=== PATIENT | male | born 1985 | race Two or more races ===

== ENCOUNTER 2017-07-26 00:56 | Emergency (ER) | payer OTHER ==
[2017-07-26] MEDS ORDERED: LIDOCAINE 1% HCL (LOCAL ANESTH.) INJ 20ML MDV ONE (03:52)
[2017-07-26] MEDS ORDERED: LIDOCAINE 2%HCL (LOCAL ANESTH.) INJ 20ML MDV ONE (03:54)
[2017-07-26 06:15] VITALS: BP 131/79
== END 2017-07-26 06:01 | disposition home or self-care (01) ==
LOC: ER 00:56 → EDSEX 00:56 → EDBD 00:56 → ER 06:01
DX: S83.92XA Sprain of unspecified site of left knee, initial encounter (principal); M25.462 Effusion, left knee; X58.XXXA Exposure to other specified factors, initial encounter; Y93.89 Activity, other specified; Y99.8 Other external cause status; Y92.89 Other specified places as the place of occurrence of the external cause
CPT/HCPCS: 20610; 73560; 99284; J2001

== ENCOUNTER 2017-07-26 08:33 | Emergency (ER) | payer OTHER ==
[~2017-07-26] VITALS: Ht 182.9 cm; Wt 79.4 kg
[2017-07-26] MEDS ORDERED: SODIUM CHLORIDE 0.9% 1,000 ML IV ONE (08:57)
[2017-07-26] MEDS ORDERED: LORazepam 2MG/ML-1ML VIAL IV ONE (09:00)
[2017-07-26] MEDS ORDERED: THIAMINE HCL 100 MG/ML 2ML VIAL IV ONE (09:00)
[2017-07-26 10:31] LABS: Basophils # (auto) 0 uL; Basophils % (auto) 0.1 % (0.0-2.0); Eosinophils # (auto) 0 uL; Hematocrit 47.5 % (41.0-53.0); Hemoglobin 15.9 g/dL (13.5-17.5); Lymphocytes # (auto) 1.2 uL; Lymphocytes % (auto) 7.8 % (10.0-50.0); Mean Corpuscular Hgb Conc. 33.5 g/dL (32.0-36.0); Mean Corpuscular Volume 92.4 fL (80.0-100.0); Mean Platelet Volume 8.6 fL (6.9-10.8); Monocytes % (auto) 6.7 % (0.0-12.0); Neutrophils # (auto) 13.2 uL; Neutrophils % (auto) 85.4 % (37.0-80.0); Platelet Count (auto) 262 10^3/uL (140-450); Red Cell Distribution Width 13.2 % (11.8-14.3); White Blood Cell 15.5 10^3/uL (4.4-10.8)
[2017-07-26 10:58] LABS: Albumin 4.4 g/dL (3.4-5.0); BUN/Creatinine Ratio 10.1; Bilirubin, Total 0.4 mg/dL (0.2-1.0); Calcium 8.2 mg/dL (8.5-10.1); Potassium 4.2 mmol/L (3.5-5.1); Total Protein 8.2 g/dL (6.4-8.2)
[2017-07-26] MEDS ORDERED: LEVOFLOXACIN 250 MG TAB PO ONE (11:30)
[2017-07-26 12:22] VITALS: BP 125/66
== END 2017-07-26 12:24 | disposition home or self-care (01) ==
LOC: ER 08:33 → EDBD 08:33 → ER 12:24
DX: J40 Bronchitis, not specified as acute or chronic (principal)
CPT/HCPCS: 36415; 71010; 80053; 85025; 96361; 96374; 99285; J3411; J7030